=== PATIENT | female | born 2000 | race Asian ===

== ENCOUNTER → 2024-05-27 | Outpatient (CLI) | payer BC, SELFPAY ==
[2024-06-01 19:07] LABS: Carrot <0.10 kU/L (Class 0); Egg, White <0.10 kU/L (Class 0); Egg, Whole <0.10 kU/L (Class 0); Egg, Yolk <0.10 kU/L (Class 0); Garlic <0.10 kU/L (Class 0); Gluten <0.10 kU/L (Class 0); Lobster <0.10 kU/L (Class 0); Milk (Cow) 0.12 kU/L (Class 0/I); Onion <0.10 kU/L (Class 0); Pistachio Nut <0.10 kU/L (Class 0); Potato, White <0.10 kU/L (Class 0); Rice <0.10 kU/L (Class 0); SESAME SEED 0.11 kU/L (Class 0/I); Salmon <0.10 kU/L (Class 0); Shrimp 0.12 kU/L (Class 0/I); Turkey <0.10 kU/L (Class 0); Walnut, (Food) <0.10 kU/L (Class 0); Wheat <0.10 kU/L (Class 0); Yeast 0.58 kU/L (Class II)
== END | disposition home or self-care (01) ==
PROVIDERS: PCP Registered Nurse; Referring Provider Otolaryngology; Visit Provider Otolaryngology
DX: T78.40XA Allergy, unspecified, initial encounter (principal)
CPT/HCPCS: 36415; 86003